=== PATIENT | female | born 1960 | race Caucasian/White ===

== ENCOUNTER 2019-10-28 10:27 | Outpatient (CLI) | payer OTHER, MEDICARE, SELFPAY ==
--- NOTE | 2019-10-28 | ECG_ITS ---
Measurements Intervals [place] Rate: 66 P: 54 VT: 136 QRS: 48 QRSD: 98 T: 52 QT: 408 QTc: 428 Interpretive Statements SINUS RHYTHM NORMAL ECG Electronically Signed On 10-28-2019 16:00:47 SHAMPOO ASSISTANT by Sammy Cole D.O.
[2019-10-28 11:28] LABS: Estimated Glomerular Filt Rate > 60
== END 2019-10-28 10:28 | disposition home or self-care (01) ==
PROVIDERS: Visit Provider Orthopaedic Surgery
DX: M17.11 Unilateral primary osteoarthritis, right knee (principal)
CPT/HCPCS: 36415; 82565; 93005

== ENCOUNTER → 2021-05-05 10:54 | Outpatient (CLI) | payer OTHER, MEDICARE, SELFPAY ==
--- NOTE | ~2021-05-05 | MR_ITS ---
EXAMINATION: MR shoulder LT wo con DATE: 05/05/2021 11:43 INDICATION: Strain of muscles and tendons of left rotator cuff, initial encounter. TECHNIQUE: Magnetic resonance imaging (MRI) of the left shoulder was performed without intravenous co ntrast. Sequences included axial PD-weighted FS FSE, coronal oblique PD-weighted FS FSE and T2-weight ed FS FSE, and sagittal oblique T2-weighted FS FSE and T1-weighted FSE. COMPARISON: left shoulder radiographs 04/26/2021 FINDINGS: Coracoacromial arch: The acromion undersurface is curved in morphology (type II). There is severe acromioclavicular joint osteoarthritis including inferiorly directed osteophytes. There is moderate subacromial/deltoid bursi tis. Rotator cuff: There is a bursal sided partial-thickness tear of the junction of supraspinatus and infraspinatus ten dons measuring 3 mm anterior to posterior by 2 mm proximal to distal by 80% tendon thickness. Teres m inor tendon is normal. There is mild subscapularis tendinopathy. There is no asymmetric fatty atrophy of the rotator cuff muscle bellies. Biceps tendon and glenoid labrum: Biceps tendon is in bicipital groove. Intra-articular biceps tendon is normal. The glenoid labrum is intact. Fluid: There is no glenohumeral joint effusion. Bones/cartilage: There is cartilage surface irregularity of glenoid and humeral head. IMPRESSION: 1. Bursal-sided partial-thickness tear of the junction of supraspinatus and infraspinatus tendons. 2. Moderate subacromial/subdeltoid bursitis. 3. Severe acromioclavicular joint osteoarthritis. 4. Mild glenohumeral joint chondrosis. Reviewed, dictated and finalized at location A. IMPRESSION: 1. Bursal-sided partial-thickness tear of the junction of supraspinatus and inf raspinatus tendons. 2. Moderate subacromial/subdeltoid bursitis. 3. Severe acromioclavicular joint osteoarthritis. 4. Mild glenohumeral joint chondrosis.
== END ==
PROVIDERS: Visit Provider Orthopaedic Surgery
DX: S46.012A Strain of muscle(s) and tendon(s) of the rotator cuff of left shoulder, initial encounter (principal); X58.XXXA Exposure to other specified factors, initial encounter; M19.012 Primary osteoarthritis, left shoulder; M75.52 Bursitis of left shoulder
CPT/HCPCS: 73221

== ENCOUNTER 2021-05-29 13:59 | Outpatient (CLI) | payer OTHER, MEDICARE, SELFPAY ==
--- NOTE | 2021-05-29 14:39 | ECG_ITS ---
Measurements Intervals [place] Rate: 64 P: 48 FL: 140 QRS: 50 QRSD: 109 T: 38 QT: 415 QTc: 431 Interpretive Statements SINUS RHYTHM DELAYED PRECORDIAL R/S TRANSITION BASELINE ARTIFACT- I, II, III, AVR, AVL, AVF BORDERLINE ECG Electronically Signed On 05-29-2021 15:01:52 CDT by Sammy Cole D.O.
== END 2021-05-29 14:00 | disposition home or self-care (01) ==
PROVIDERS: Visit Provider Orthopaedic Surgery
DX: E78.00 Pure hypercholesterolemia, unspecified (principal); Z01.818 Encounter for other preprocedural examination
CPT/HCPCS: 93005

== ENCOUNTER 2021-06-01 02:32 | Day surgery (SDC) | payer OTHER, MEDICARE, SELFPAY ==
[2021-05-29 14:10] VITALS: BMI 26.1
[2021-05-29 14:39] VITALS: BP 110/57; PULSE 72; RESP 16; TEMP 36.8; O2SAT 99
--- NOTE | 2021-05-31 09:05 | WPDANESEPPF ---
Anes - Initial Pre Proc Eval Procedure: Operation Date: 06/01/21 11:00 Proposed Procedures p Arthroscopic Rotator Cuff Repair and Subacromial Decompression Left Shoulder - Jeffrey Diamond MD Date/Time: 05/31/21 09:05 Surgeon: Jeffrey Diamond MD Pre Op Diagnosis: complete rotator cuff tear left shoulder Patient Data Age: 60 Gender: F Height: 1.6 m Weight: 66.8 kg Last Vital Signs Temp 36.8 C 05/29/21 14:39 Pulse 72 05/29/21 14:39 Resp 16 05/29/21 14:39 BP 110/57 L 05/29/21 14:39 Pulse Ox 99 05/29/21 14:39 Allergies Allergy/AdvReac Type Severity Reaction Status Date / Time pseudoephedrine Allergy Unknown GLOSSY EYED Verified 06/01/21 09:04 loratadine [From Claritin-D] AdvReac GLOSSY EYED Verified 06/01/21 09:04 PSEUDOEPHEDRINE HCL Allergy Mild GLOSSY Uncoded 06/01/21 09:04 EYED ; GO UNRESPONSIVE TRIPROLIDINE HCL Allergy Mild GLOSSY Uncoded 06/01/21 09:04 EYED GO UNRESPONSIVE Home Medications Medication Instructions Recorded Confirmed Type aspirin 81 mg tablet,delayed 81 mg PO DAILY 10/28/19 06/01/21 History release biotin 10,000 mcg capsule 1,000 mcg PO DAILY 10/28/19 06/01/21 History cholecalciferol (vitamin D3) 25 25 mcg PO DAILY 10/28/19 06/01/21 History mcg (1,000 unit) tablet gabapentin 400 mg capsule 400 mg PO BID 10/28/19 06/01/21 History glucosamine HCl 1,500 mg tablet 1,500 mg PO DAILY 10/28/19 06/01/21 History lamotrigine 150 mg tablet 150 mg PO HS 10/28/19 06/01/21 History multivitamin with iron 1 tablet PO DAILY 10/28/19 06/01/21 History rosuvastatin 40 mg tablet 40 mg PO DAILY 10/28/19 06/01/21 History vitamin B complex 1 tablet PO DAILY 10/28/19 06/01/21 History carbidopa-levodopa 1 tablet PO HS 05/29/21 06/01/21 History meloxicam 15 mg PO HS 05/29/21 06/01/21 History Patient hx anesthesia problems: none Family hx anesthesia problems: none [facility] Past Medical History Medical History (Updated 05/31/21 @ 09:07 by Jose Martin Gimenez DO) Breast cancer Hyperlipidemia Osteoarthritis of right knee RLS (restless legs syndrome) Seizure one occurrence, 1990. Meds Surgical History Surgical History (Updated 05/31/21 @ 09:07 by Jose Martin Gimenez DO) H/O repair of right rotator cuff (~02/05/14) History of bilateral mastectomy History of hysterectomy (~01/29/04) History of shoulder surgery (~04/03/16) History of total knee replacement right S/P medial meniscectomy of right knee (~07/04/12) Family History Family History (System 03/18/20 @ 10:34 by Lorie Rivera) Other Diabetes mellitus Social History Social History (System 03/18/20 @ 10:34 by Lorie Rivera) Smoking status: Never smoker Alcohol intake: never Living arrangements: with family Spiritual care concerns: No Anes - Eval Final PreProcedure Day of Procedure 05/31/21 09:05 Patient weight: overweight Heart: regular rate and rhythm Lungs: clear to auscultation and normal air movement Airway: Mallampati scale class II Neurological: alert and oriented Last oral intake: >/= 8 hours ASA classification: III Emergent: no Anesthetic plan: proceed Anesthesia type and monitoring: general ETT and standard monitoring Informed Consent: The patient's anesthetic plan and its attendant risks and benefits were discussed with the patient/family/POA. Questions were solicited and answers provided to the satisfaction of the patient/family/POA.
--- NOTE | 2021-05-31 09:07 | WPDANESPNB ---
Anes - Peripheral Nerve Block Date/Time: 05/31/21 09:07 I have discussed with the patient/family/POA the placement of a peripheral nerve block for post-operative pain management, including associated risks, benefits, complications, and side effects. Alternative methods of post-operative analgesia were detailed. Questions were solicited and answers provided to the satisfaction of the patient/family/POA. Time-Out: A pre-procedural Time-Out was completed immediately before starting the procedure and confirmed: Patient Identification, Site, Procedure, Patient Position and the Availability of Requisite Equipment. Clinical Indications: Acute post-operative pain management requested by the operative surgeon. Nerve Block Insertion Note Anes-nerve block: interscalene right Patient position: supine Skin prep: chlorhexidine Needle: 22 gauge, stimulating, insulated echogenic needle. Needle length: 50 mm Technique: ultrasound Injectate: bupivacaine 0.5% with epi 5 mcg/ml (30cc- no epi) Observations: tolerated well Complications: none Procedure start time:: 1036 Procedure end time:: 1038
[2021-06-01] VITALS (10 sets, daily range): BP systolic 113–158; BP diastolic 73–85; PULSE 47–69; RESP 8–16; TEMP 35.8–36.5; O2SAT 98–100
[2021-06-01] MEDS: ACETAMINOPHEN 500 MG TABLET 1000 MG PO (09:15)
[2021-06-01] MEDS: LACTATED RINGERS 1,000 ML 30 ML IV CONT ×2 (09:35→13:42)
[2021-06-01] MEDS: KETOROLAC 15 MG/ML VIAL (*BKC) IV PUSH (09:36)
--- NOTE | 2021-06-01 10:55 | WPDHPUPDATE1 ---
History and Physical Update Update Date/Time: 06/01/21 10:55 History and Physical has been reviewed, including an updated exam of the patient. There are NO changes in the patient's condition. Risks, benefits, and alternatives have been discussed and questions answered. Patient agrees to proceed with procedure.
[2021-06-01] MEDS: ceFAZolin 2 GM/D5W 50 ML 2 GM/50 ML BAG IVPB (10:58)
--- NOTE | 2021-06-01 17:06 | W.PM.PROC2 ---
Procedure Note - Detailed Date of Procedure 06/01/21 Pre-op Diagnosis complete rotator cuff tear left shoulder Post-op Diagnosis other (1. Rotator cuff tear 2. Subacromial impingement) Procedure Performed 1. Arthroscopic rotator cuff repair 2. Arthroscopic subacromial decompression Surgeon Jeffrey Diamond MD Interior Decorator Ilene Layton PA-C Anesthesia general and regional ( interscalene block) Findings Small-medium sized tear of supraspinatus. Very high grade partial articular and bursal tears, completed. Evidence of subacromial impingement. 2 tunnel repair with rip stop. Good tissue quality without retraction. Description of Procedure Physician early childhood teacher assistant, Ilene Wheeler PA-C, required for surgery; including patient positioning, draping, arthroscopic camera operation, maintaining instrument position, suture retrieval, wound closure, and dressing and sling placement. Preoperative antibiotics were given. An interscalene block was administered in the preoperative area. The patient was bought brought to the operating room. A general anesthetic was administered. The patient was carefully positioned in the lateral decubitus position. The head and neck were carefully positioned. The non operative extremity was also carefully positioned. The shoulder was prepped and draped in the usual sterile fashion. Examination was performed. Standard posterior and anterior arthroscopic portals were established. Inflow achieved with the arthroscopic pump using saline and epinephrine. The glenohumeral joint was carefully inspected. Minimal fraying present at the superior labrum and upper subscapularis. Attention was turned to the subacromial space. A complete bursectomy was performed. The rotator cuff and footprint were lightly debrided. A modest acromioplasty was performed. The tear configuration was carefully assessed. At this point, 2 tunnels were created at the rotator cuff. The ArthroTunneler technique was utilized. Three sutures were passed through each tunnel. All sutures were then passed through the cuff tissue. The sutures were tied arthroscopically. The arthroscopic instruments were removed. The wounds were closed with 3-0 Monocryl subcuticular suture and steri strips. There were no complications. A sling was applied and the patient brought to the recovery room. Estimated Blood Loss 10 Pathology none sent Complications No immediate complications Condition stable Disposition PACU
== END 2021-06-01 16:15 | disposition home or self-care (01) ==
PROVIDERS: Visit Provider Orthopaedic Surgery
PROC: (CPT 29805; principal; 2021-06-01 11:00)
DX: S46.012A Strain of muscle(s) and tendon(s) of the rotator cuff of left shoulder, initial encounter (principal); X50.0XXA Overexertion from strenuous movement or load, initial encounter; M75.42 Impingement syndrome of left shoulder; G89.18 Other acute postprocedural pain; E78.5 Hyperlipidemia, unspecified; G25.81 Restless legs syndrome; Z79.82 Long term (current) use of aspirin; Z85.3 Personal history of malignant neoplasm of breast
CPT/HCPCS: 29827; 29826; 64415; 93005; A4565; A9270; J0690; J1100; J1885; J2250; J2405; J2704; J3010; J7120

== ENCOUNTER → 2022-07-23 10:09 | Outpatient (CLI) | payer OTHER, SELFPAY ==
--- NOTE | ~2022-07-23 | MR_ITS ---
EXAMINATION: MR knee LT wo con DATE: 07/23/2022 10:45 INDICATION: Anterior left knee pain and swelling TECHNIQUE: Magnetic resonance imaging (MRI) of the left knee was performed without intravenous contra st. Sequences included coronal PD-weighted FSE, coronal PD-weighted FS FSE, sagittal T2-weighted FSE , sagittal PD-weighted FS FSE and axial PD weighted fat saturated FSE. COMPARISON: None. FINDINGS: Medial compartment: Medial meniscus is normal. Diffuse mild partial-thickness cartilage loss with smooth chondral surface and without degenerative subchondral changes. Lateral compartment: Lateral meniscus is normal. Heterogeneous cartilage signal suggesting partial thickness fissuring at the central aspect of the lateral tibial plateau. Patellofemoral compartment: Small deep chondral fissures without degenerative subchondral changes at the medial side of the media l patellar facet and superolateral margin of the lateral facet. Partial-thickness cartilage loss at t he medial lateral trochlea with smooth chondral surface and without degenerative subchondral changes. Ligaments and tendons: Anterior and posterior cruciate ligaments are normal. The medial collateral ligament and fibular keaton ateral ligament complex are normal. The extensor mechanism is normal. The visualized medial and later al hamstring tendons as well as the iliotibial band are normal. Fluid: Physiologic amount of fluid in the joint space. No loose osteochondral bodies identified. Mild prepat ellar and pretibial edema without discrete bursal fluid collection. Additional mild edema at the supe rficial suprapatellar fat pad which can be seen with fat pad impingement syndrome. Osseous/other: Normal marrow signal. No fracture or pathologic marrow replacing process. IMPRESSION: 1. Minimal to mild tricompartmental osteoarthritis with medial and patellofemoral compartment predomi nance. 2. Small regions of mild prepatellar and pretibial edema without discrete bursal fluid collections. 3. Mild edema at the superficial suprapatellar fat pad which can be seen with fat pad impingement syn drome. Reviewed, dictated and finalized at location A. IMPRESSION: 1. Minimal to mild tricompartmental osteoarthritis with medial and patellofemor al compartment predominance. 2. Small regions of mild prepatellar and pretibial edema without discrete bursa l fluid collections. 3. Mild edema at the superficial suprapatellar fat pad which can be seen with f at pad impingement syndrome.
== END ==
PROVIDERS: PCP Physician Assistant Surgical; Visit Provider Physician Assistant Surgical
DX: M17.12 Unilateral primary osteoarthritis, left knee (principal)
CPT/HCPCS: 73721

== ENCOUNTER → 2023-08-08 12:33 | Outpatient (CLI) | payer OTHER, MEDICARE, SELFPAY ==
--- NOTE | ~2023-08-08 | MR_ITS ---
EXAMINATION: MR elbow LT wo con DATE: 08/08/2023 13:14 INDICATION: Lateral epicondylitis TECHNIQUE: Magnetic resonance imaging (MRI) of the left elbow was performed without intravenous contr ast. Sequences included coronal, axial, and sagittal PD-weighted FS FSE and coronal, axial, and sagit penelope PD-weighted FSE. COMPARISON: None FINDINGS: Osseous/other: Normal alignment. Normal marrow signal with no marrow edema, fracture, osteochondral lesion or abnor mal marrow replacing process. Mild osteoarthritis with with partial thickness cartilage loss with smo oth chondral surface and without degenerative subchondral changes along the radial head. Tendons: Triceps, biceps brachii and brachialis tendons are normal. The common extensor tendon wad is normal. There is mild increased muscle signal surrounding the tendon components of the common flexor tendon wad at its medial epicondylar origin consistent with mild medial epicondylitis/enthesitis. No evident tendon tear. Ligaments: The medial and lateral collateral ligament complexes are normal. Cubital tunnel: Cubital tunnel is unremarkable with normal signal and caliber of the ulnar nerve. Fluid: Physiologic amount of fluid the elbow joint. IMPRESSION: 1. Mild medial epicondylitis/enthesitis without significant tendinopathy or evident tear of the commo n flexor tendon wad. 2. Mild osteoarthritis at the radiocapitellar articulation. Reviewed, dictated and finalized at location A. LEX COMMERCIAL LITIGATION PARALEGAL IMPRESSION: 1. Mild medial epicondylitis/enthesitis without significant tendinopathy or sarah dent tear of the common flexor tendon wad. 2. Mild osteoarthritis at the radiocapitellar articulation.
== END ==
PROVIDERS: PCP Orthopaedic Surgery; Visit Provider Orthopaedic Surgery
DX: M77.12 Lateral epicondylitis, left elbow (principal); M19.022 Primary osteoarthritis, left elbow
CPT/HCPCS: 73221

== ENCOUNTER 2023-11-04 09:05 | Outpatient (CLI) | payer OTHER, MEDICARE, SELFPAY ==
--- NOTE | 2023-11-04 09:20 | ECG_ITS ---
Measurements Intervals [place] Rate: 71 P: 67 WI: 152 QRS: 51 QRSD: 96 T: 56 QT: 411 QTc: 449 Interpretive Statements SINUS RHYTHM WITHIN NORMAL LIMITS COMPARED TO ECG 05/29/2021 14:46:38 NO SIGNIFICANT CHANGES Electronically Signed On 11-04-2023 16:49:54 FORM COVERER by Papito Mena M.D.
== END 2023-11-04 09:06 | disposition home or self-care (01) ==
PROVIDERS: Visit Provider Orthopaedic Surgery
DX: E78.00 Pure hypercholesterolemia, unspecified (principal); Z01.818 Encounter for other preprocedural examination
CPT/HCPCS: 93005

== ENCOUNTER 2023-11-11 02:32 | Day surgery (SDC) | payer OTHER, MEDICARE, SELFPAY ==
[2023-10-31 10:52] VITALS: BMI 29.2
--- NOTE | 2023-10-31 10:57 | PC.NURSE ---
Report to the Outpatient Waiting Room, entrance under the green pavilion located off [facility], at time 10:00 on date 11/11/23. Planned Procedure Time: 12:00. Time changes happen often and if your time is changed the preop area will call you the afternoon before. - You and your visitor will be asked to self-screen and do not enter if you have any COVID symptoms. - A mask is optional within the hospital at this time. Patients may have clear liquids (water, carbonated beverages, clear teas, apple juice) until 3 hours prior to surgery (9:00) with a maximum of 20 ounces. - No food from midnight until time of surgery Take the following medications with a SIP of water the morning of surgery: GABAPENTIN DO NOT STOP ANY OF YOUR OTHER PRESCRIPTION MEDICATIONS PRIOR TO SURGERY ?EXCEPT THE FOLLOWING Medications to discontinue per physician: VITAMINS/SUPPLEMENTS Date to take last dose: 11/07/23 LAST DOSE OF ASPIRIN 11/03/23 Please no make-up, nail [place], hairspray, perfume, deodorant, or body powder the day of surgery. No jewelry (including any body piercings) or valuables the day of surgery, leave them at home. Please take a shower or bath the night before, or the morning of, surgery with an antibacterial soap. Wear comfortable, loose fitting clothing. - Jewelry must be removed prior to entering the operating room. Rings and piercings that are not removed may be cut off. - The hospital will not accept responsibility for valuables. - Please leave all valuables, including medications, at home the day of surgery. If you are going home after surgery, a licensed truck driver rubbish collector must drive you home. - NO public transportation without another adult if you receive anesthesia. - We recommend that an adult stay with you for 24 hours following discharge. - We also recommend that you do not drive, make important decision, drink alcoholic beverages, or take any drugs that were not prescribed by your health care provider for at least 24 hours after your discharge time. Follow any additional instructions given to you from your surgeon. If you or anyone in your household have experienced Covid symptoms in the past week, please notify your surgeon or the nurse liaison at the phone number below for possible testing. Telephone instructions given to PT - DALIA STEVEN and asked if any additional questions and then verbalized understanding. Patient advised to call surgeon office or pre surgery nurse liaison [phone] if any additional questions.
[2023-11-11] VITALS (8 sets, daily range): BP systolic 108–158; BP diastolic 67–84; PULSE 51–85; RESP 12–16; TEMP 36.1–36.8; O2SAT 98–100
[2023-11-11] MEDS: LACTATED RINGERS 1,000 ML 30 ML IV CONT (10:30)
[2023-11-11] MEDS: KETOROLAC 15 MG/ML VIAL (*BKC) IV PUSH (11:00)
[2023-11-11] MEDS: ACETAMINOPHEN 500 MG TABLET 1000 MG PO (11:00)
--- NOTE | 2023-11-11 11:53 | WPDHPUPDATE1 ---
History and Physical Update Update Date/Time: 11/11/23 11:53 History and Physical has been reviewed, including an updated exam of the patient. There are NO changes in the patient's condition. Risks, benefits, and alternatives have been discussed and questions answered. Patient agrees to proceed with procedure.
--- NOTE | 2023-11-11 11:56 | WPDANESEPPF ---
Anes - Initial Pre Proc Eval Procedure: Operation Date: 11/11/23 12:00 Proposed Procedures p Left Elbow Medial Epicondyle Debridement - Jeffrey Diamond MD s Left Cubital Tunnel Release - Jeffrey Diamond MD Date/Time: 11/11/23 11:56 Surgeon: Jeffrey Diamond MD Pre Op Diagnosis: left elbow medial epicondylitis Patient Data Age: 63 Gender: F Height: 1.6 m Weight: 78 kg Last Vital Signs Temp 98.2 F 11/11/23 11:25 Pulse 71 11/11/23 11:25 Resp 16 11/11/23 11:25 BP 158/84 H 11/11/23 11:25 Pulse Ox 100 11/11/23 11:25 O2 Del Method Room Air 11/11/23 11:25 Allergies Allergy/AdvReac Type Severity Reaction Status Date / Time pseudoephedrine Allergy Unknown GLOSSY EYED Verified 11/11/23 11:21 triprolidine [From Actifed] Allergy GLOSSY EYED Verified 11/11/23 11:21 loratadine [From Claritin-D] AdvReac GLOSSY EYED Verified 11/11/23 11:21 Home Medications Medication Instructions Recorded Confirmed Type aspirin 81 mg tablet,delayed 81 mg PO DAILY 10/28/19 11/11/23 History release cholecalciferol (vitamin D3) 25 25 mcg PO DAILY 10/28/19 11/11/23 History mcg (1,000 unit) tablet gabapentin 400 mg capsule 400 mg PO BID 10/28/19 11/11/23 History glucosamine HCl 1,500 mg tablet 1,500 mg PO DAILY 10/28/19 11/11/23 History lamotrigine 150 mg tablet 150 mg PO HS 10/28/19 11/11/23 History multivitamin with iron (Daily 1 tablet PO DAILY 10/28/19 11/11/23 History Vitamin with Iron tablet) rosuvastatin 40 mg tablet 40 mg PO DAILY 10/28/19 11/11/23 History vitamin B complex (B 1 tablet PO DAILY 10/28/19 11/11/23 History Complex-Vitamin B12 tablet) carbidopa 25 mg-levodopa 100 mg 1 tablet PO HS RESTLESS LEG 05/29/21 11/11/23 History tablet celecoxib 200 mg capsule 200 mg PO DAILY 10/31/23 11/11/23 History phenazopyridine 95 mg tablet 95 mg PO TID 10/31/23 11/11/23 History Patient hx anesthesia problems: none Family hx anesthesia problems: none Results Review: All pre-operative results and documents have been reviewed as part of the pre-operative evaluation. [facility] Past Medical History Medical History Breast cancer Hyperlipidemia Osteoarthritis of right knee RLS (restless legs syndrome) Seizure one occurrence, 1990. Meds Surgical History Surgical History H/O repair of right rotator cuff (~02/05/14) History of bilateral mastectomy History of hysterectomy (~01/29/04) History of repair of left rotator cuff (~06/01/21) w/Subacromial Decompression History of shoulder surgery (~04/03/16) History of total knee replacement right S/P medial meniscectomy of right knee (~07/04/12) Family History Family History Other Diabetes mellitus Social History Social History (Updated 11/04/23 @ 08:10 by Karen Talamantes MA) Smoking status: Never smoker Alcohol intake: never Substance use: never Substance use type: does not use Do You Feel Safe in your Home?: Yes Lack of Transportation: No Lack of Food: Never True Current Housing: I Have Housing Concerned About Future Housing: No Difficulty Paying Gas/Electric Bills: No Difficulty Paying for Meds: No Currently Unemployed: No Education: High School Diploma/GED Difficulty w/ Childcare or Family Care: No Living arrangements: with family Spiritual care concerns: No Anes - Eval Final PreProcedure Day of Procedure 11/11/23 11:56 Patient weight: normal Heart: regular rate and rhythm Lungs: clear to auscultation Airway: Mallampati scale class II Neurological: alert and oriented Last oral intake: >/= 8 hours ASA classification: III Emergent: no Anesthetic plan: proceed Anesthesia type and monitoring: general LMA and standard monitoring Results Review: All pre-operative results and documents have been reviewed as part of the p
[2023-11-11] MEDS: ceFAZolin 2 GM/D5W 50 ML 2 GM/50 ML BAG IVPB (12:04)
[2023-11-11] MEDS: BUPIVACAINE/EPINEPHRINE 0.5% 30 ML VIAL INFILTRATE (12:32)
--- NOTE | 2023-11-11 15:17 | W.PM.PROC2 ---
Procedure Note - Detailed Date of Procedure 11/11/23 Pre-op Diagnosis 1. Left elbow medial epicondylitis 2. Cubital tunnel syndrome Post-op Diagnosis Same Procedure Performed Left 1. Medial epicondyle debridement 2. Cubital tunnel decompression Surgeon Jeffrey Diamond MD [place] Ilene Layton PA-C Anesthesia General Findings Degenerative tissue at the flexor carpi radialis tendon origin. Inflammatory changes at the cubital tunnel. Description of Procedure Operative details. After sedation was administer, the upper extremity was prepped and draped in the usual sterile fashion. The proposed incision was marked using typical anatomic landmarks. The limb was exsanguinated and the tourniquet inflated to 250 millimeters of mercury. A longitudinal incision was created posterior to the medial epicondyle. Careful dissection was brought down to the ulnar nerve. It was identified proximally and dissected to the cubital tunnel retinaculum. Careful dissection released the cubital tunnel retinaculum. The dissection was carried out to the flexor carpi ulnaris. The 1st motor branch was carefully identified and protected. Attention was turned proximally in the nerve was released proximal to the intermuscular septum. The arm was flexed and the nerve was assessed. The nerve was stable. The course of the nerve was very nice without evidence of compression or instability. Attention was turned to the flexor pronator mass of muscles. The origin was rather soft at the flexor carpi radialis. The interval between the flexor carpi radialis in the common extensor tendon was opened as this was where the tissue felt the most abnormal. Degenerative tissue was encountered and was carefully debrided. The tendon defect was repaired using 0 Vicryl suture. The tourniquet was released to assure that there was no significant bleeding. Meticulous hemostasis was maintained. The subcutaneous tissues were closed with 3-0 Monocryl suture followed by running 4-0 Monocryl suture and Steri-Strips. Sterile dressing was applied with a hard splint at the elbow. The patient was extubated and brought to the recovery room in stable condition. Physician delivery driver assistant, Ilene Layton PA-C, required for surgery; including patient positioning, draping, tissue retraction, maintaining instrument position, wound closure, and dressing and splint placement. Estimated Blood Loss 1 Pathology None sent Complications No immediate complications Condition Stable Disposition PACU [facility] Billing Surgery - Charge Forward: Surgery Billing
== END 2023-11-11 15:18 | disposition home or self-care (01) ==
PROVIDERS: Visit Provider Orthopaedic Surgery
PROC: (CPT 24110; principal; 2023-11-11 12:00)
PROC: (CPT 64721; 2023-11-11 12:00)
DX: M77.02 Medial epicondylitis, left elbow (principal); G56.22 Lesion of ulnar nerve, left upper limb; Z79.82 Long term (current) use of aspirin; G40.909 Epilepsy, unspecified, not intractable, without status epilepticus; E78.5 Hyperlipidemia, unspecified; G25.81 Restless legs syndrome; Z85.3 Personal history of malignant neoplasm of breast
CPT/HCPCS: 64718; 93005; A9270; J0690; J1100; J1885; J2250; J2405; J2704; J3010; J7120

== ENCOUNTER 2024-03-25 09:32 | Outpatient (CLI) | payer OTHER, MEDICARE, SELFPAY ==
--- NOTE | ~2024-03-25 | XR_ITS ---
EXAMINATION: XR hip RT 2V w AP pelvis DATE: 03/25/2024 09:47 INDICATION: Right hip pain. TECHNIQUE: An anteroposterior view of the pelvis and 2 views of right hip were obtained. COMPARISON: None. FINDINGS: Bone alignment is normal. No fracture. There is severe lumbar spondylosis. There is mild os teoarthritis of the hips. IMPRESSION: 1. Mild osteoarthritis of the hips. Reviewed, dictated and finalized at location A.
== END 2024-03-25 09:33 | disposition home or self-care (01) ==
LOC: ANHIMG 09:34
PROVIDERS: Visit Provider Orthopaedic Surgery
DX: M16.0 Bilateral primary osteoarthritis of hip (principal)
CPT/HCPCS: 73502

== ENCOUNTER 2025-09-15 07:39 | Outpatient (CLI) | payer BC, MEDICARE, SELFPAY ==
--- NOTE | ~2025-09-15 | XR_ITS ---
EXAMINATION: XR shoulder LT min 2V, 09/15/2025 8:05 TRAINING PERSONNEL SUPERVISOR HISTORY: Z98.890 - Other specified postprocedural states COMPARISON: No comparisons available. Findings: No acute fracture or malalignment. Moderate degenerative changes Soft tissues unremarkable. Impression: No acute fracture or malalignment. Reviewed, dictated and finalized at location P. NING PERSONNEL SUPERVISOR Impression: No acute fracture or malalignment.
--- OUTSIDE RECORDS SUMMARY | 2025-09-15 07:46 | XMS_ITS | Clinical Summary ---
Author Organization [facility] [address] [place] [address] Care Team Providers Care Staple Fiber Washer Name Role Phone Naeem Begum MD Primary Care Provider [phone] Cordell Gilman MD Unavailable [phone] Allergies Active Allergy Reactions Criticality Noted Date Comments Triprolidine-Pseudoephedr ine Other (See comments) Low 11/17/2019 See previouse comment Loratadine Other (See comments) Low 11/17/2019 Claritin D Pseudoephedrine Other (See comments) Low 11/17/2019 Dose not feel like herself Medications carbidopa-levod opa (SINEMET) 25-100 mg per tablet Take 1 tablet by mouth nightly 0 Active fluticasone propionate (FLONASE) 50 mcg/actuation nasal sprayIndication s:Allergic Rhinitis Administer 1 spray into each nostril as needed for rhinitis 9 Active gabapentin (NEURONTIN) 400 mg capsule Take 1 capsule (400 mg total) by mouth 2 (two) times a day 0 Active lamoTRIgine (LaMICtal) 150 mg tablet Take 1 tablet (150 mg total) by mouth nightly 9 Active rosuvastatin (CRESTOR) 40 mg tablet Take 1 tablet (40 mg total) by mouth daily 0 Active glucosamine HCl 1,500 mg tablet Take 1 tablet/capsule by mouth 2 (two) times a day Active cyanocobalamin (Vitamin B-12) 1,000 mcg tabletIndicatio ns:Prevention of Vitamin B12 Deficiency Take 1 tablet (1,000 mcg total) by mouth daily Active cholecalciferol (VITAMIN D-3) 1000 unit tablet Take 1 tablet (1,000 Units total) by mouth daily Active meloxicam (MOBIC) 15 mg tablet Take 1 tablet (15 mg total) by mouth nightly 0 Active Narcan 4 mg/actuation spray,non-aeros ol 0 Active multivitamin with minerals (HAIR,SKIN AND NAILS ORAL) Take 1 capsule by mouth daily Active aspirin 325 mg tablet Take 1 tablet (325 mg total) by mouth 2 (two) times a day 60 tablet 0 Active Additional Information Patient taking differently: 81 mgoralDaily, Reported on 01/16/2022 multivitamin capsule Take 1 capsule by mouth daily Active polyethylene glycol (MIRALAX) 17 gram/dose powder Take 17 g by mouth 2 (two) times a day as needed 2 Active ibuprofen (ADVIL,MOTRIN) 600 mg tablet Take 1 tablet (600 mg total) by mouth 3 (three) times a day with meals 2 Active celecoxib (CeleBREX) 200 mg capsule TAKE 1 CAPSULE BY MOUTH IN THE MORNING WITH FOOD 4 Active nystatin powder APPLY POWDER TOPICALLY TWICE DAILY NEEDED 4 Active Active Problems Problem Noted Date Diagnosed Date Breast cancer 01/28/2022 Syncope 01/28/2022 TIA (transient ischemic attack) 01/27/2022 Hamstring tendonitis of right thigh 01/16/2022 Pes anserinus bursitis of right knee 01/16/2022 Failed total knee, 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 Arthrofibrosis of knee joint, right 03/02/2020 Acute focal neurological deficit 12/22/2019 UTI (urinary tract infection) 12/22/2019 Status post total right knee replacement 020 Seizure disorder 12/10/2019 Pyuria 12/10/2019 Restless leg syndrome 12/10/2019 History of breast cancer 12/10/2019 Primary osteoarthritis of right knee 11/17/2019 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 01/22/2019 Overview (03/07/2020): Note: Bilateral mascetomy---Dr Swan -- adj chemo--04/13--06/15/19 Hyperlipidemia 10/24/2017 Idiopathic generalized epilepsy 06/11/2016 Insomnia 06/11/2016 Degeneration of intervertebral disc of cervical region 11/19/2013 Lumbar sprain 09/01/2013 Osteoarthritis 12/15/2012 Allergic rhinitis due to pollen 07/29/2000 Immunizations Immunization Administration Dates Next Due Influenza, Quadrivalent, Rec ombinant, Egg Free, Preservative Free, Intramuscular 08/01/2019 Influenza, Quadrivalent, Spl it, Preservative Free, Intramuscular 07/28/2020,08/01/2019,08/01/2018,08/02,08/01/2016,08/05/2015 Influenza, Unspecified 07/31/2019 Surgical History Surgery Date Site/Laterality Comments MASTECTOMY 09/30/2018 - 09/29/2019 Bilateral SHOULDER SURGERY 09/30/2015 - 09/29/2016 Right bone spurs KNEE ARTHROSCOPY Right X 2 ROTATOR CUFF REPAIR 09/30/2013 - 09/29/2014 Right HYSTERECTOMY 09/30/2003 - 09/29/2004 TOTAL KNEE ARTHROPLASTY Right BREAST SURGERY 02/2019 Medical History Medical History Date Comments Hypercholesteremia Seizures (HCC) one time seizure - 1990 Restless leg syndrome Arthritis Cancer (HCC) 2019 invasive ductal carcinoma, right Asthma Family History Medical History Relation Name Comments Heart disease Father Derek Diabetes Mother Leslie Relation Name Status Comments Father Derek Mother Leslie Social History Tobacco Use Types Packs/Day Years Used Date Smoking Tobacco: Never Smokeless Tobacco: Never Tobacco Cessation:Counseling Given: Not Answered Alcohol Use Standard Drinks/Week Comments Not Currently 0 (1 standard drink = 0.6 oz pur e alcohol) Social Connection and Isolation Panel Answer Date Recorded Frequency of Communication with Friends and Fami ly Not on file 07/28/2020 Frequency of Social Gatherings with Friends and Family Not on file 07/28/2020 How often do you attend lutheran or adventism serv ices? Never 07/28/2020 Active Member of Clubs or Organizations Not on f ile 07/28/2020 Attends Club or Organization Meetings Not on patience e 07/28/2020 Marital Status Not on file 07/28/2020 Overall Financial Resource Strain (CARDIA) Answe r Date Recorded How hard is it for you to pa y for the very basics like food, housing, medical care, and heating? Not hard at all 12/04/2019 Hunger Vital Sign Answer Date Recorded Within the past 12 months, y ou worried that your food would run out before you got the money to buy more. Never true 12/04/19 20 Within the past 12 months, t he food you bought just didn't last and you didn't have money to get more. Never true 12/04/2019 PRAPARE - Transportation Answer Date Re corded In the past 12 months, has l ack of transportation kept you from medical appointments or from getting medications? No 02/2020 In the past 12 months, has l ack of transportation kept you from meetings, work, or from getting things needed for daily living? 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 Not on file Not on file Last Filed Vital Signs Vital Sign Reading Time Taken Comments Blood Pressure 110/64 11/01/2020 10:18 AM CIRCUS TRAINER Pulse 71 10/27/2020 8:15 AM CIRCUS TRAINER Temperature 36.3 C (97.3 F) 12/30/2020 7:52 AM CDT Respiratory Rate 11 10/27/2020 8:15 AM CIRCUS TRAINER Oxygen Saturation 95% 10/27/2020 8:15 AM CIRCUS TRAINER Inhaled Oxygen Concentration - - Weight 82.1 kg (181 lb) 02/25/2024 7:58 AM CDT Height 154.9 cm (5' 1) 02/25/2024 7:58 AM CDT Body Mass Index 34.2 02/25/2024 7:58 AM CDT Plan of Treatment Health Maintenance Due Date Last Done Comments Breast Cancer Screening-Mammogram 1960 Colon Cancer Screening-Colonoscopy 1960 Depression Screening 1960 Hepatitis C Screening 1960 Osteoporosis Screening-Bone Density Scan 1960 DTaP/Tdap/Td Vaccine (1 - Tdap) 1971 Hepatitis B Screening 1978 Pneumococcal vaccine 65+ (1 of 1 - PCV) 2010 Zoster Vaccine (1 of 2) 2010 Fall Risk Assessment 10/27/2021 10/27/2020 Influenza Vaccine (#1) 2025 0, 08/01/2019, 08/01/2019, Additional history exists Well Visit 65+ 2025 Medical Devices Implanted Type Area Typesetter Apprentice Device Identifier Shelf Expiration Date Model / Serial / Lot [employer] [id number] Persona 32mm Knee Component Patellar All Poly Latex Free - [id number] Implanted:Qty: 1 on 12/09/2019 by Cordell Gilman MD at [facility] [employer] [id number] 09/29/2027 [id number] / / [id number] [employer] [id number] jovany Revision Fixation Knee Right C Component Tibial Nonporous - [id number] Implanted:Qty: 1 on 07/27/2020 at [facility] [employer] [id number] 02/27/2030 [id number] / / [id number] K[employer] [id number] jovany 12mm 135+ Mm Revision Spline Knee Straight Stem Tibial - [id number] Implanted:Qty: 1 on 07/27/2020 at [facility] [employer] 11/27/2029 [id number] / / [id number] K[employer] [id number] jovany 10mm L+135mm Knee 6mm Offset Stem Extension Sterile Latex - [id number] Implanted:Qty: 1 on 07/27/2020 at [facility] [employer] [id number] 11/27/2029 [id number] / / [id number] K[employer] [id number] jovany Cement Constrain Knee Condylar 7+ Component Femoral Cocr - [id number] Implanted:Qty: 1 on 07/27/2020 at [facility] [employer] [id number] 03/29/2030 [id number] / / [id number] K[employer] [id number] Augment 7 7+ 5mm Femoral Persona Knee Distal Sterile Latex Free - [id number] Implanted:Qty: 1 on 07/27/2020 at [facility] [employer] [id number] 11/27/2028 [id number] / / [id number] [employer] [id number] Augment 7 7+ 5mm Femoral Persona Knee Distal Sterile Latex Free - [id number] Implanted:Qty: 1 on 07/27/2020 at [facility] [employer] [id number] 11/27/2028 [id number] / / [id number] Aur[employer] [id number] Palacos R+G High Viscosity Cement Bone Gentamicin Arthroplasty - Sna - [id number] Implanted:Qty: 1 on 07/27/2020 by Cordell Gilman MD at [facility] Right: Knee [employer] Inc 07/30/2022 [id number] / [id number] [employer] Inc [id number] Palacos R+G High Viscosity Cement Bone Gentamicin Arthroplasty - [id number] Implanted:Qty: 1 on 07/27/2020 at [facility] [employer] 07/30/2022 [id number] / / [id number] Allosource [id number] Allomend 4x4cm Nonmesh 2-3.3mm Xthick Graft Soft Tissue Acellular - [id number] Implanted:Qty: 1 on 07/27/2020 at [facility] [employer] 08/09/2020 [id number] / / [id number] Insert Artic 7-9 Cd 12mm Knee Right Condylar Constrain - [id number] Implanted:Qty: 1 on 07/27/2020 at [facility] [employer] [id number] 03/29/2024 [id number] / / [id number] Explanted Type Area Typesetter Apprentice Device Identifier Shelf Expiration Date Model / Serial / Lot [employer] Inc [id number] Palacos R+G High Viscosity Cement Bone Gentamicin Arthroplasty - [id number] Implanted:Qty: 1 on 12/09/2019 by Cordell Gilman MD at [facility] Explanted:Qty: 1 on 07/27/2020 at [facility] [employer] 01/27/2022 [id number] / / [id number] Kym Profex Inc [id number] Persona Cemented Stem Knee Right 5d C Baseplate Tibial Tivanium - [id number] Implanted:Qty: 1 on 12/09/2019 by Cordell Gilman MD at [facility] Explanted:Qty: 1 on 07/27/2020 at [facility] [employer] [id number] 2 09/29/2029 [id number] / / [id number] K[employer] [id number] Persona 11mm Cruciate Retaining Knee Right 3-9 Cd Insert - [id number] Implanted:Qty: 1 on 12/09/2019 by Cordell Gilman MD at [facility] Explanted:Qty: 1 on 07/27/2020 at [facility] [employer] [id number] 1 10/30/2023 [id number] / / [id number] [employer] [id number] Persona Cruciate Retaining Knee Right 7 Narrow Component Femoral - [id number] Implanted:Qty: 1 on 12/09/2019 by Cordell Gilman MD at [facility] Explanted:Qty: 1 on 07/27/2020 at [facility] [employer] [id number] 2 08/29/2029 [id number] / / [id number] Insurance MEDICARE [employer] OPEN ACCESS [employer] OPEN ACCESS MEDICARE MEDICARE [facility] [place] [facility] CHOICE PLUS MEDICARE [facility] CHOICE PLUS Advance Directives For more information, please contact: [phone] * Full Code (Latest Code Status on File) Date Activated Date Inactivated Comments 07/27/2020 7:51 PM 07/29/2020 9:57 PM * Full Code Date Activated Date Inactivated Comments 12/09/2019 5:41 PM 12/11/2019 10:05 PM Care Teams Staple Fiber Washer Relationship Specialty Start Date End Date Naeem Begum MD [address] [place] [id number] PCP - General Internal Medicine 11/16/19 Cordell Gilman MD [address] [place] [address] Surgeon Orthopedic Surgery 12/11/19
--- OUTSIDE RECORDS SUMMARY | 2025-09-15 07:46 | XMS_ITS | Clinical Summary ---
Author Organization [facility] Address [address] [place] [address] Phone Care Team Providers Care Warrant Clerk Name Role Phone Naeem Begum MD Primary Care Provider [phone] Allergies Active Allergy Reactions Criticality Noted Date Comments Loratadine-Pseudoephedrin e Er Other (see Comments) 12/21/2019 Causes confusion Pseudoephedrine Rash 12/21/2019 Medications lamoTRIgine (LAMICTAL) 150 MG Tablet Take 150 mg by mouth daily. Active rosuvastatin (CRESTOR) 40 MG Tablet Take 40 mg by mouth daily. Active aspirin EC 81 MG Tablet Delayed Response Take 81 mg by mouth daily. Active Multiple Vitamins-Calciu m (ONE-A-DAY WOMENS FORMULA PO) Take 1 Tab by mouth daily. Active Biotin 41846 MCG Tablet Take 10,000 mcg by mouth daily. Active cholecalciferol 25 mcg Tablet Take 1,000 Units by mouth daily. Active Cyanocobalamin 500 MCG Tablet Take 1,000 mcg by mouth daily. Active ferrous sulfate 325 (65 Fe) MG Tablet Take 325 mg by mouth daily. Active carbidopa-levod opa (SINEMET) 25-100 MG Tablet Take 1 Tablet by mouth nightly. 90 Tablet 11/12/2024 Active gabapentin (NEURONTIN) 100 MG Capsule Take 1 Capsule by mouth 2 times daily. 90 Capsule 11/12/2024 Active Active Problems Problem Noted Date Diagnosed Date Severe sepsis 11/01/2024 Pyelonephritis 11/01/2024 Neutropenic 11/01/2024 Restless leg syndrome 01/28/2022 Breast cancer 01/28/2022 Syncope 01/28/2022 TIA (transient ischemic attack) 01/27/2022 Acute focal neurological deficit 12/22/2019 UTI (urinary tract infection) 12/22/2019 Hyperlipidemia Seizures Asthma Immunizations Immunization Administration Dates Next Due Influenza,Split Virus,Trivalent,Injectable,PF Pneumococcal conjugate PCV20 , polysaccharide JIB185 conjugate, adjuvant, PF 11/05/2024 Social History Tobacco Use Types Packs/Day Years Used Date Smoking Tobacco: Never Smokeless Tobacco: Never Alcohol Use Standard Drinks/Week Comments Never 0 (1 standard drink = 0.6 oz pur e alcohol) [facility] Utilities Answer Date Recorded In the past 12 months has th e electric, gas, oil, or water company threatened to shut off services in your home? No 11/01/2024 PHQ-2 Answer Date Recorded Total Score - Questions 1-9 0 12/31 Hunger Vital Sign Answer Date Recorded Within the past 12 months, y ou worried that your food would run out before you got the money to buy more. Never true 11/01/19 25 Within the past 12 months, t he food you bought just didn't last and you didn't have money to get more. Never true 11/01/2024 PRAPARE - Transportation Answer Date Re corded In the past 12 months, has l ack of transportation kept you from medical appointments or from getting medications? No 10/2024 In the past 12 months, has l ack of transportation kept you from meetings, work, or from getting things needed for daily living? No 11/01/2024 Housing Stability Vital Sign Answer Jt e Recorded In the last 12 months, was t here a time when you were not able to pay the mortgage or rent on time? No 11/01/2024 In the past 12 months, how m any times have you moved where you were living? 1 11/01/2024 At any time in the past 12 m [facility], were you homeless or living in a intermediate (including now)? No 11/01/2024 Comments No Sex and Gender Information Value Date Recorded Sex Assigned at Female 10/31/2024 11:32 PM PROFESSIONAL SERVICES SPECIALIST Legal Sex Female 11:23 PM CDT Gender Identity Female 10/31/2024 11:32 PM PROFESSIONAL SERVICES SPECIALIST Sexual Orientation Not on file Last Filed Vital Signs Vital Sign Reading Time Taken Comments Blood Pressure 114/70 12/09/2024 9:10 AM CDT Pulse 64 12/09/2024 9:10 AM CDT Temperature 36.2 C (97.2 F) 12/09/2024 9:10 AM CDT Respiratory Rate 16 12/09/2024 9:10 AM CDT Oxygen Saturation 99% 12/09/2024 9:10 AM CDT Inhaled Oxygen Concentration - - Weight 77.6 kg (171 lb) 11/19/2024 10:58 AM PROFESSIONAL SERVICES SPECIALIST Height 160 cm (5' 3) 11/13/2024 2:14 PM PROFESSIONAL SERVICES SPECIALIST Body Mass Index 30.29 11/13/2024 2:14 PM PROFESSIONAL SERVICES SPECIALIST Plan of Treatment Health Maintenance Due Date Last Done Comments DEXA Bone Density 1960 Hepatitis C Virus (HCV) Screening 1960 Cologuard 2005 Colonoscopy 2005 Respiratory Syncytial Virus (RSV) Immunization (Adult) (1 - Risk 50-74 years 1-dose series) 2010 Medicare Initial AWV G0438 05/31/2014 SARS-COV-2 Immunization (3 - Pfizer risk series) 06/13/2021 05/16/2021, 04/25/2021 Colorectal Cancer Screening 01/28/2023 Immunochemical Fecal Occult Blood 01/28/2023 01/28/2022 Influenza Immunization (#1) 2025 020 02/2025, 10/04/2023, 09/16/2022, Additional history exists DTaP/Tdap/Td Immunization Discontinued 01/01/2022 TdaP Immunization Completed 01/01/2022 Zoster Immunization Completed 01/01/2022, Pneumococcal Immunization (50+ years) Completed 11/05/2024 Pneumococcal Immunization Combined Discontinued 11/05/2024 Hepatitis B Immunization Aged Out No longer eligible based on patient's age to complete this topic Human Papillomavirus (HPV) Immunization (No Doses Required) Completed Meningococcal Immunization (ACWY) Aged Out No longer eligible based on patient's age to complete this topic Rotavirus Immunization Aged Out No lo nger eligible based on patient's age to complete this topic Procedures Procedure Name Priority Date/Time Associated Diagnosis Comments STOOL, OCCULT BLOOD, DIAGNOSTIC, VIA GUAIAC STAT 01/28/2022 10:55 AM CDT from Last 3 Months or Most Recently Relevant to Health Maintenance Results * Stool Occult Blood - Diagnostic (01/28/2022 10:55 AM CDT) OCCULT BLOOD DIAG Negative Negative 01/28/2022 11:09 AM CDT [facility] Stool Non-Phlebotomy Collection / Unknown 01/28/2022 10:55 AM CDT 01/28/2022 10:58 AM CDT us Jeremias Briceno PAC BODY FLUIDS & STOOLS ORDERABLES Final Result [facility] [address] [place] [address] from Last 3 Months or Most Recently Relevant to Health Maintenance Insurance MEDICARE Advance Directives Documents on File Type Date Recorded Patient Social Worker Expl anation Power of Garden Consultant for Health Care 11/27/2024 11:38 AM POA-HC * Full Code (Latest Code Status on File) Date Activated Date Inactivated Comments 11/01/2024 3:04 AM CPR-Full Treatm ent: FULL ARREST: Attempt Resuscitation/CPR wit intubation and mechanical ventilation. PRE-ARREST: Use entire range of life support measures to stabilize the patient. * Full Code Date Activated Date Inactivated Comments 01/27/2022 8:20 PM 01/29/2022 1:48 PM CPR-Full Ankita tment: FULL ARREST: Attempt Resuscitation/CPR wit intubation and mechanical ventilation. PRE-ARREST: Use entire range of life support measures to stabilize the patient. * Full Code Date Activated Date Inactivated Comments 12/22/2019 2:50 AM 12/23/2019 8:18 PM CPR-Full Mani atment: FULL ARREST: Attempt Resuscitation/CPR wit intubation and mechanical ventilation. PRE-ARREST: Use entire range of life support measures to stabilize the patient. Care Teams Warrant Clerk Relationship Specialty Start Date End Date Naeem Begum MD [address] [place] [id number] PCP - General Internal Medicine 12/11/19
--- OUTSIDE RECORDS SUMMARY | 2025-09-15 07:46 | XMS_ITS | Encounter Summary ---
Author Organization [facility] Address [address] [place] [id number] Care Team Providers Care Lab Engineer Name Role Phone Naeem Begum MD Primary Care Provider [phone] Carmela Rush CHEMICAL WORKER Unavailable [phone] Adrián Henderson ROUTE SALES ASSOCIATE Unavailable [phone] Cordell Gilman MD Unavailable [phone] Encounter Details Date Type Department Care Team (Late st Contact Info) Description 12/14/2019 Documentation [facility] Case Management [address] [place] [address] Jesika Silva, RN Social History Tobacco Use Types Packs/Day Years Used Date Smoking Tobacco: Never Smokeless Tobacco: Never Alcohol Use Standard Drinks/Week Comments Not Currently 0 (1 standard drink = 0.6 oz pur e alcohol) Social Connection and Isolation Panel Answer Date Recorded Frequency of Communication w ith Friends and Family Three times a week 12/04/2019 Frequency of Social Gatherin gs with Friends and Family Twice a week 12/04/2019 Attends Orthodoxy Services 1 to 4 times per year 12/04/2019 Active Member of Clubs or Organizations No 12/04/2019 Attends Club or Organization Meetings Never 12/04/2019 Marital Status 12/04/2019 Overall Financial Resource Strain (CARDIA) Answe r [...] needed for daily living? 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 No / Unsure 12/10/2019 3:55 AM CDT documented as of this encounter Miscellaneous Notes * Plan of Care - Jesika Silva RN - 12/14/2019 4:12 PM CDT Notified by Javier at [facility] they are not able to see patient. Called [facility] who stated they would be able to start care on 12/14 with RN and PT on 12/16. Flower MCGOWAN notified of change of date and provider. Notified patient who verbalized understanding. Jesika REYES, flexographic press operator 12/14/2019 4:13 PM documented in this encounter Plan of Treatment Not on file documented as of this encounter Visit Diagnoses Not on filedocumented in this encounter Care Teams Lab Engineer Relationship Specialty Start Date End Date Naeem Begum MD [address] [place] [id number] PCP - General Internal Medicine 11/16/19 Carmela Rush, CHEMICAL WORKER [address] [facility] [address] [place] [address] C[facility] Outpatient Cleaner Signs 12/04/19 03/02/20 Adrián Henderson, ROUTE SALES ASSOCIATE [address] [facility] [address] [place] [address] CJR Outpatient Cleaner Signs 12/04/19 03/02/20 Cordell Gilman MD [address] [facility] [address] [place] [address] Surgeon Orthopedic Surgery 12/11/19 documented as of this encounter
--- OUTSIDE RECORDS SUMMARY | 2025-09-15 07:46 | XMS_ITS ---
Author Organization [facility] Kaylan Santos on [place] Address [address] [place] [address] Phone Care Team Providers Care Domestic Laundry Worker Name Role Phone Naeem Begum MD Primary Care Provider [phone] Active Problems Patient Care Coordination No te Formatting of this note migh t be different from the original. 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 Past Treatment and Therapy Plans ONCOLOGY THERAPY PLAN Plan Name Start Date Discontinue Date Treatment Medications Discontinue Reason Plan Provider SUPPORTIVE 05/13/2019 10/12/2019 No medications scheduled. Therapy Complete Buffy Patterson NP ONCOLOGY TREATMENT Plan Name Start Date Discontinue Date Treatment Medications Discontinue Reason Plan Provider Cycles OP ONC BREAST_DO CETAXEL_C YCLOPHOSP HAMIDE (TC) EVERY 21 DAYS 9 10/12/2019 cycloPHOSphamide (CYTOXAN) IVPBDOCEtaxel (TAXOTERE) IVPB Therapy Complete Aleena Roberts MD 4 of 4 cycles started
--- OUTSIDE RECORDS SUMMARY | 2025-09-15 07:46 | XMS_ITS | Clinical Summary ---
[facility] [place] Address [address] [place] [address] Phone Care Team Providers Care Business Support Administrator Name Role Phone Naeem Begum MD Primary Care Provider [phone] Allergies Active Allergy Reactions Criticality Noted Date Comments Pseudoephedrine Hcl Other (See Comments) 2018 Memory loss Medications gabapentin (NEURONTIN) 400 mg capsule Take 400 mg by mouth 3 times daily. Active lamoTRIgine (LaMICtal) 150 mg tablet Take 150 mg by mouth daily. Active carbidopa-levodo pa (SINEMET) 25-100 mg tablet Take 1 Tablet by mouth 3 times daily. Active Glucosamine Sulfate 1,000 mg Capsule Take by mouth. Active multivit,calc,mi ns/iron/folic (ONE-A-DAY WOMENS FORMULA ORAL) Take by mouth. Active cholecalciferol (DELTA-D, VITAMIN D3) 400 unit Tablet Take by mouth daily. Active aspirin (ECOTRIN EC) 81 mg Tablet, Delayed Release (E.C.) Take 81 mg by mouth daily. Active cyanocobalamin, vitamin B-12, (VITAMIN B-12 ORAL) Take by mouth. Active multivitamin with minerals (HAIR,SKIN AND NAILS ORAL) Take by mouth. Active celecoxib (CeleBREX) 200 mg capsule Take 200 mg by mouth daily. 09/30/2023 Active rosuvastatin (CRESTOR) 40 mg tablet Take 40 mg by mouth daily. Active Active Problems Patient Care Coordination No te Formatting of this note migh t be different from the original. 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 (01/19/2019): right breast Encounters Date Type Department Care Team Description 07/13/2025 External Device Data ST[facility] ABSTRACTION Provider, Abstract from Last 3 Months Family History Medical History Relation Name Comments Breast Cancer Paternal Aunt 60's Breast Cancer Paternal Cousin 60's Relation Name Status Comments Paternal Aunt 60's Alive Paternal Cousin 60's Alive Social History Tobacco Use Types Packs/Day Years Used Date Smoking Tobacco: Never Smokeless Tobacco: Never Tobacco Cessation:Counseling Given: Not Answered Alcohol Use Standard Drinks/Week Comments Not Currently 0 (1 standard drink = 0.6 oz pur e alcohol) Comments No Sex and Gender Information Value Date Recorded Sex Assigned at Not on file Legal Sex Female 1:01 PM CDT Gender Identity Not on file Sexual Orientation Not on file Last Filed Vital Signs Vital Sign Reading Time Taken Comments Blood Pressure 130/83 10/14/2023 8:03 AM [employer]AILER [employer] Pulse 74 10/14/2023 8:03 AM [employer]AILER [employer]URN[employer] Temperature 36.6 C (97.8 F) 10/14/2023 8:03 AM [employer]ER [employer]URN[employer] Respiratory Rate 14 03/13/2019 9:57 AM CDT Oxygen Saturation 95% 10/14/2023 8:03 AM [employer] Inhaled Oxygen Concentration - - Weight 80.7 kg (178 lb) 10/14/2023 8:03 AM [employer]AILER [employer]URN[employer] Height 160 cm (5' 3) 10/14/2023 8:03 AM DETAILER [employer]URNIT[employer] Body Mass Index 31.53 10/14/2023 8:03 AM [employer]ER [employer]URN[employer] Plan of Treatment Health Maintenance Due Date Last Done Comments DTAP/TDAP/TD VACCINES (1 - Tdap) 1979 COLORECTAL SCREENING 2005 Colorectal Cancer Screening 2005 FIT-DNA Q 3 years 2005 FIT/FOBT Q 1 year 2005 Flex Sig/CT Colonography Q 5 years 2005 PNEUMOCOCCAL VACCINE 50+ YEA RS (1 of 1 - PCV) 2010 ZOSTER VACCINE (1 of 2) 2010 INFLUENZA VACCINE (#1) 2025 9, 08/01/2018, 08/02/2017, Additional history exists OSTEOPOROSIS SCREENING 2025 RSV VACCINE (60+ or ) (1 - 1-dose 75+ series) 2035 Medical Devices Implanted Type Area Film Developing Machine Operator Device Identifier Shelf Expiration Date Model / Serial / Lot Hemostatic Surgicel 4x8in 1951 - [id number] Implanted:Qty: 4 on 03/12/2019 by Lilian Baltazar MD at [facility] [place] Hemostatic Right: Breast [employer] 08/29/20231951 / [id number] Hemostatic Surgicel 4x8in 1951 [id number] Implanted:Qty: 4 on 03/12/2019 by Lilian Baltazar MD at [facility] [place] Hemostatic Left: Breast [employer] 08/29/20231951 / [id number] Insurance MEDICARE PART A AND B [place] [id number] RX AET[employer] Medicare Part D RX [place] [employer] (INTERNAL) [facility] Advance Directives For more information, please contact: [phone] * Full Code (Latest Code Status on File) Date Activated Date Inactivated Comments 03/12/2019 2:09 PM 03/13/2019 1:40 PM Care Teams Business Support Administrator Relationship Specialty Start Date End Date Naeem Begum MD [address] [place] [id number] PCP - General Internal Medicine 01/19/19
== END 2025-09-15 07:40 | disposition home or self-care (01) ==
PROVIDERS: Visit Provider Orthopaedic Surgery
DX: M25.512 Pain in left shoulder (principal); Z98.890 Other specified postprocedural states
CPT/HCPCS: 73030